=== PATIENT | female | born 1995 | race Caucasian/White ===

== ENCOUNTER 2017-04-24 16:41 | Emergency (ER) | payer OTHER, BC ==
[2017-04-24 16:58] LABS: EOSINOPHIL (%) 1.5 % (0-5); EOSINOPHIL COUNT 0.1 K/uL (0-0.3); HEMATOCRIT 43.5 % (36.0-46.0); IMMATURE GRANULOCYTE (%) 0.1 % (0.0-0.7); INSTRUMENT ABS NEUTROPHIL CT 2.8 K/uL; LYMPHOCYTE COUNT 2.8 K/uL (1.0-2.8); MCH 28.7 PG (29.0-34.0); MCHC 32.6 G/DL (30.0-36.0); MCV 88.1 FL (83-99); MONOCYTE (%) 14.2 % (3-12); NEUTROPHIL (%) 41.4 % (45-76); NEUTROPHIL COUNT 2.8 K/uL (1.8-6.4); PLATELET COUNT 200 K/uL (156-360); RBC DIS.WIDTH-CV 13.3 % (11.8-14.6); RBC DIS.WIDTH-SD 42.9 % (39-53); RED BLOOD COUNT 4.94 M/uL (3.80-5.20); WHITE BLOOD COUNT 6.7 K/uL (4.1-10.2)
[2017-04-24 17:00] LABS: AMYLASE 28 IU/L (1-118); CHLORIDE 110 mEq/L (99-109); POTASSIUM 3.8 mEq/L (3.7-5.4); SODIUM 141 mEq/L (136-147)
[2017-04-24 17:02] LABS: GLUCOSE 120 mg/dL (70-99)
[2017-04-24 17:03] LABS: ANION GAP 10 MEQ/L (2-14)
[2017-04-24 17:05] LABS: SERUM ETHYL ALCOHOL 110 mg/dL
[2017-04-24 17:07] LABS: UREA NITROGEN (BUN) 8 mg/dL (9-23)
[2017-04-24 17:09] LABS: GFR ESTIMATE (CALCULATED) > 59 mL/min/; LIPASE 16 U/L (1.0-51.0)
[2017-04-24 17:15] LABS: QUANTITATIVE HCG < 4.0 MIU/ML
[2017-04-24 18:14] LABS: ADD MIUA? YES; BILIRUBIN NEGATIVE; BLOOD SMALL; COLOR STRAW ((YELLOW)); GLUCOSE (STRIP) NEGATIVE; KETONES NEGATIVE; LEUKOCYTES SMALL; NITRITE NEGATIVE; PROTEIN (STRIP) NEGATIVE; SPECIFIC GRAVITY 1.009 (1.000-1.030); UROBILINOGEN 0.2 MG/DL (0.2-1.0)
[2017-04-24 18:18] LABS: BACTERIA RARE /HPF; EPITHELIAL CELLS RARE /HPF; MUCUS TRACE /LPF; RED BLOOD CELLS 0-5 /HPF (0-5); UCUL ADDED? NO; WHITE BLOOD CELLS 0-5 /HPF (0-5)
[2017-04-24 18:41] LABS: ADD MEDTOX COMMENT Y; AMPHETAMINE NEGATIVE (500 ng/mL); BARBITURATES NEGATIVE (200 ng/mL); BENZODIAZEPINES PRESUMPTIVE POSITIVE (150 ng/mL); COCAINE NEGATIVE (150 ng/mL); INTERNAL CONTROLS VALID? YES; METHADONE NEGATIVE (200 ng/mL); METHAMPHETAMINE NEGATIVE (500 ng/mL); OPIATES (MORPHINE) NEGATIVE (100 ng/mL); OXYCODONE NEGATIVE (100 ng/mL); PHENCYCLIDINE NEGATIVE (25 ng/mL); PROPOXYPHENE NEGATIVE (300 ng/mL); THC CANNABINOIDS NEGATIVE (50 ng/mL); TRICYCLIC ANTIDEPRESSANTS NEGATIVE (300 ng/mL)
[2017-04-24 19:29] LABS: BENZODIAZEPINES, URINE SCREEN POSITIVE (200 ng/mL)
== END 2017-04-25 09:50 | disposition home or self-care (01) ==
LOC: TRA 16:41
PROVIDERS: Emergency Medicine
PROC: 3E0234Z Introduction of Serum, Toxoid and Vaccine into Muscle, Percutaneous Approach (ICD-10-PCS; principal; 2017-04-24)
DX: S80.811A Abrasion, right lower leg, initial encounter (principal); S60.812A Abrasion of left wrist, initial encounter; M25.532 Pain in left wrist; F32.9 Major depressive disorder, single episode, unspecified; R45.851 Suicidal ideations; F10.10 Alcohol abuse, uncomplicated; V48.0XXA Car driver injured in noncollision transport accident in nontraffic accident, initial encounter; Y92.410 Unspecified street and highway as the place of occurrence of the external cause; Z76.5 Malingerer [conscious simulation]; F41.9 Anxiety disorder, unspecified; Z23 Encounter for immunization
CPT/HCPCS: 70450; 71010; 72125; 72170; 73100; 80048; 81003; 82150; 83690; 84702; 84999; 85025; 86850; 86900; 86901; 90839; 99281; 99285; G0480